=== PATIENT | female | born 1955 | race Caucasian/White ===

== ENCOUNTER 2020-11-01 20:35 | Emergency (ER) | payer MEDICARE, OTHER ==
[2020-11-01 20:43] VITALS: TEMP 98.3
[2020-11-01] MEDS ORDERED: MORPHINE SULFATE 2 MG/ML SYRINGE IM STA (20:56)
--- NOTE | 2020-11-01 21:06 | ED ---
General Adult HPI - General Chief complaint: Fall Stated complaint: Fall/Hand and Ankle Pain Time Seen by Provider: 11/01/20 20:46 Source: patient, family, RN notes reviewed Mode of arrival: wheelchair Limitations: no limitations - History of Present Illness Initial comments: 65-year-old female without any significant past medical history presents to the emergency department for a chief complaint of fall. Patient reports she was reaching to pull down a blind when she fell down 12 stairs. Patient did hit her nose and forehead. She denies neck pain. Patient is complaining of right ankle pain right wrist pain and left fifth digit pain. She thinks her finger is broken. She denies any loss of consciousness. Denies any lacerations. Denies headache at this time.Patient has no other complaints at this time including shortness of breath, chest pain, abdominal pain, nausea or vomiting, headache, or visual changes. - Related Data Home Medications Medication Instructions Recorded Confirmed Fexofenadine HCl [Kristine Allergy] 180 mg PO DAILY 11/01/20 11/01/20 Ibuprofen [Advil] 400 mg PO Q4-6H PRN 11/01/20 11/01/20 Previous Rx's Medication Instructions Recorded HYDROcodone/APAP 5-325MG [Rossford 1 tab PO Q6HR PRN #10 tab 11/01/20 5-325] Allergies Allergy/AdvReac Type Severity Reaction Status Date / Time levofloxacin [From Levaquin] Allergy dizziness Verified 11/01/20 21:32 Review of Systems ROS Statement: Those systems with pertinent positive or pertinent negative responses have been documented in the HPI. ROS Other: All systems not noted in ROS Statement are negative. 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 She does have edema noted of the lateral malleolus of the right ankle. DP pulses 2+. She is able to plantar and dorsiflex the right ankle all of this does elicit pain. No tenderness in the right foot. No tenderness in the knee or hip. Right upper extremity: Patient has pain with full flexion and extension of the right wrist. Radial pulses 2+. No contusions or edema. No snuffbox tenderness. Sensation intact in the right hand. No tenderness in the right hand. No tenderness in the proximal right arm Left upper extremity: Atraumatic aside from deviation of the left 2nd digit Limitations: no limitations General appearance: alert, in no apparent distress Head exam: Present: normocephalic. Absent: atraumatic (Abrasion noted to the forehead and nasal bridge) Eye exam: Present: normal appearance, PERRL, EOMI. Absent: scleral icterus, conjunctival injection, periorbital swelling ENT exam: Present: normal exam, normal oropharynx, mucous membranes moist, TM's normal bilaterally, normal external ear exam Neck exam: Present: normal inspection, full ROM. Absent: tenderness, meningismus, lymphadenopathy Respiratory exam: Present: normal lung sounds bilaterally. Absent: respiratory distress, wheezes, rales, rhonchi, stridor Cardiovascular Exam: Present: regular rate, normal rhythm, normal heart sounds. Absent: systolic murmur, diastolic murmur, rubs, gallop, clicks GI/Abdominal exam: Present: soft, normal bowel sounds. Absent: distended, tenderness, guarding, rebound, rigid, other (No contusions or evidence of external trauma) Back exam: Absent: CVA tenderness (R), CVA tenderness (L), vertebral tenderness (No thoracic or lumbar spine tenderness. No contusions or evidence of external trauma) Neurological exam: Present: alert, oriented X3 Course Vital Signs 11/01/20 20:37 Temperature 98.3 F Pulse Rate 83 Respiratory 20 Rate Blood Pressure 150/94 O2 Sat by Pulse 100 Oximetry Procedures - Orthopedic Joint Reduction Joint #1 Consent Obtained: verbal consent Side: left Joint Reduction Location: finger Technique Used: traction/counter-traction Post-Reduction Neuro Exam: intact Post-Reduction Vascular Exam: intact Post Reduction X-Ray Obtained: Yes Post Reduction X-Ray Results: other (PACS down, clinically reduced) Patient Tolerated Procedure: well, no complications - Orthopedic Splinting/Casting Injury #1 Side: right Lower Extremity Injury Location: short leg Lower Extremity Immobilizer: posterior splint, stirrup splint Additional Comments: Neurovascular status intact Medical Decision Making - Medical Decision Making Patient fell from 12 steps. She did injure her right ankle, right wrist and left second digit. No injuries to the torso. CT brain shows normal for her age. No evidence for a cranial hemorrhage. CT cervical spine shows no fracture . X-ray of the right ankle shows a bimalleolar-type fracture. X-ray of the right wrist is negative. X-ray of the left hand shows a posterior dislocation of the index finger. Right ankle is splinted. Neurovascular status intact. Left finger was reduced using traction countertraction without difficulty. Neurovascular status intact. Repeat x-ray was obtained. At this time patient does have orthopedic physician that she can follow-up with. She will return here for any worsening symptoms. Disposition Clinical Impression: Fall, Finger dislocation, Bimalleolar ankle fracture Disposition: HOME SELF-CARE Condition: Good Instructions (If sedation given, give patient instructions): Ankle Fracture (ED), Head Injury (ED) Additional Instructions: Please take Rossford for pain. These may make you drowsy so be careful while taking this. Please remain nonweightbearing on the right ankle by using crutches. Keep splint dry. Follow-up with orthopedics tomorrow by calling for an appointment. Return to the emergency room for any worsening symptoms. Prescriptions: HYDROcodone/APAP 5-325MG [Rossford 5-325] 1 tab PO Q6HR PRN #10 tab PRN Reason: Pain Is patient prescribed a controlled substance at d/c from ED?: Yes When asked, does pt state using other controlled substances?: No If prescribed controlled substance>3 days was MAPS reviewed?: Prescribed <3 Days If opioid is for acute pain is fill amount 7 days or less?: Yes If Rx opioid, was Start Talking consent form obtained?: Yes Referrals: Jewel Bird DO [Doctor of Osteopathic Medicine] - 1-2 days Time of Disposition: 22:13
--- NOTE | 2020-11-01 21:28 | CT ---
EXAMINATION TYPE: CT brain dineshine wo con DATE OF EXAM: 11/01/2020 COMPARISON: None HISTORY: Fall, abrasions to nose and left orbit. CT DLP: 1177.8 mGycm Automated exposure control for dose reduction was used. The ventricles and sulci appear normal. There is no mass effect nor midline shift. There is no sign o f intracranial hemorrhage. The calvarium is intact. There is no evidence of cerebral edema. Cervical vertebra have normal alignment. There is degenerative disc space narrowing at C5-6 and C6-7 with spurring. Posterior elements are intact. There is mild hypertrophic facet arthropathy. There is no evidence of cervical spine fracture. The skull base is intact. There is normal aeration of the mas toid sinuses. IMPRESSION: CT scan of the brain is normal for age. Spondylotic changes in the lower cervical spine. No fracture.
--- NOTE | 2020-11-01 21:35 | CT ---
EXAMINATION TYPE: CT facial bones wo con DATE OF EXAM: 11/01/2020 COMPARISON: None HISTORY: Fall, abrasions to nose and left orbit. CT DLP: 1177.8 mGycm Automated exposure control for dose reduction was used. Images obtained from the bottom of the mandible to the top of the frontal sinuses without contrast. The mandibular ring is intact. Temporomandibular joints are intact. Zygomatic arches appear normal. N deion bone is intact. There is normal aeration of the paranasal sinuses. There is no evidence of orbit al mass. Retro-orbital soft tissues appear normal. IMPRESSION: Negative CT scan of the facial bones. No fracture seen.
--- NOTE | 2020-11-01 21:37 | XR ---
EXAMINATION TYPE: XR ankle complete RT DATE OF EXAM: 11/01/2020 COMPARISON: NONE HISTORY: Pain TECHNIQUE: 3 views FINDINGS: There is transverse fracture of the medial malleolus. There is oblique fracture distal shaf t of the fibula. Ankle mortise is not widened. There is no dislocation. There is soft tissue swelling around the ankle. IMPRESSION: Bimalleolar type fracture of the ankle. No dislocation. Soft tissue swelling.
--- NOTE | 2020-11-01 21:38 | XR ---
EXAMINATION TYPE: XR wrist complete RT DATE OF EXAM: 11/01/2020 COMPARISON: NONE HISTORY: Wrist pain TECHNIQUE: 3 views FINDINGS: Carpal bones are intact. I see no fracture nor dislocation. Joint spaces are fairly normal. Scaphoid appears intact. IMPRESSION: Negative right wrist exam.
--- NOTE | 2020-11-01 21:40 | XR ---
EXAMINATION TYPE: XR hand complete LT DATE OF EXAM: 11/01/2020 COMPARISON: NONE HISTORY: Pain 3 views of the left hand show posterior dislocation of the PIP joint of the left index finger. I see no fracture line. Joint spaces are normal. There is minor spurring at the first carpometacarpal joint . IMPRESSION: Posterior dislocation of the index finger as above.
[2020-11-01 22:44] VITALS: BP 150/95; PULSE 80; RESP 18
--- NOTE | 2020-11-01 23:37 | XR ---
EXAM: XR Left Fingers, 2 or More Views CLINICAL HISTORY: ITS.REASON XR Reason: post redux TECHNIQUE: Frontal, lateral and oblique views of the fingers of the left hand. COMPARISON: No relevant prior studies available. FINDINGS: Bones/joints: There is a 1-2 mm chip or avulsion fracture off of the palmar aspect of the proximal end of the middle phalanx, second digit. This is seen well only in the lateral view. No dislocation. Soft tissues: Unremarkable. No radiopaque foreign body. IMPRESSION: There is a 1-2 mm chip or avulsion fracture off of the palmar aspect of the proximal end of the middle phalanx, second digit. This is seen well only in the lateral view.
== END 2020-11-01 23:05 | disposition home or self-care (01) ==
LOC: EC 20:35
DX: S82.52XA Displaced fracture of medial malleolus of left tibia, initial encounter for closed fracture (principal); S82.54XA Nondisplaced fracture of medial malleolus of right tibia, initial encounter for closed fracture; S82.434A Nondisplaced oblique fracture of shaft of right fibula, initial encounter for closed fracture; S63.281A Dislocation of proximal interphalangeal joint of left index finger, initial encounter; S62.643A Nondisplaced fracture of proximal phalanx of left middle finger, initial encounter for closed fracture; S00.31XA Abrasion of nose, initial encounter; Z88.1 Allergy status to other antibiotic agents; W10.9XXA Fall (on) (from) unspecified stairs and steps, initial encounter; Y93.89 Activity, other specified; Y92.009 Unspecified place in unspecified non-institutional (private) residence as the place of occurrence of the external cause
CPT/HCPCS: 73110; 73130; 73140; 73610; 72125; 70486; 70450; 96372; 26770; 29515; 99284; J2270

== ENCOUNTER → 2020-11-14 | Day surgery (SDC) | payer MEDICARE, OTHER ==
[2020-11-09 10:05] VITALS: BMI 33.6
[~2020-11-14] MED LIST: DEXAMETHASONE SOD PHOSPHATE 10 MG/ML 1 ML VIAL ONE; DEXAMETHASONE SOD PHOSPHATE 4 MG/ML 1 ML VIAL IV ONE; LACTATED RINGERS 1,000 ML IV ONE; LACTATED RINGERS 1,000 ML IV SCH; LIDOCAINE 1% (10MG/ML) FOR IV START INTRADERMA ONE; LIDOCAINE 1% INJ 10MG/ML (20 ML MDV) ONE; MIDAZOLAM 2 MG/2 ML VIAL IV ONE; MIDAZOLAM 2 MG/2 ML VIAL ONE; ONDANSETRON 4 MG/2 ML VIAL IVP ONE; PROPOFOL 10 MG/ML 20 ML VIAL IV ONE; ROPIVACAINE 5 MG/ML 30 ML VIAL ONE; SUCCINYLCHOLINE CHLORIDE 100 MG/5 ML SYR IV ONE; ceFAZolin 3,000 MG in SODIUM CHLORIDE 0.9% IRRIGATIO 3,000 ML IRRIGATION ONE; ePHEDrine SULFATE/0.9% NACL/PF 50 MG/5 ML SYRINGE IV ONE; fentaNYL (PF) 50 MCG/ML 2 ML AMP ONE
--- NOTE | 2020-11-14 14:47 | P.OP ---
Date of Procedure: 11/14/20 Preoperative Diagnosis: Bimalleolar fracture right ankle Postoperative Diagnosis: Bimalleolar fracture right ankle Procedure(s) Performed: Open reduction and internal fixation of the right distal fibula and medial malleolus Implants: Regalado and nephew small fragment set Anesthesia: GETA Surgeon: Jewel Bird Tool Keeper #1: Yaritza Kellogg Estimated Blood Loss (ml): 20 Pathology: none sent Condition: stable Disposition: PACU Indications for Procedure: This is a 65-year-old female that sustained a fall and subsequently fractured her right ankle. After discussing the surgical nonsurgical treatment options with her at length I recommended open reduction and internal fixation of right distal fibula and medial malleolus. Informed consent was obtained. Operative Findings: The operative findings are consistent with a bimalleolar fracture of the right ankle Description of Procedure: The patient was seen and evaluated in the preoperative area. The consent was reviewed and the operative site was marked with a skin marker. Patient was then brought to the operating room and given 2 g of Ancef by the anesthesia department. A general anesthetic was then administered by the anesthesia department. Tourniquet was placed on the upper thigh and the lower extremity was then prepped and draped in the usual sterile fashion. A universal timeout was then performed which confirmed the patient's name, surgical site, ALLERGIES, and consent. The lower extremity was then exsanguinated, and the tourniquet inflated to 250 mmHg. A standard lateral incision was then performed over the distal fibula with the skin and subcutaneous tissue sharply incised with the incision centered over the fracture site. Tissues were carefully dissected down to the fracture site. The fracture hematoma was evacuated and the fracture was then reduced with bone reducing clamps. Fluoroscopic x-rays confirmed reduction of the fracture and shinto of the ankle mortise. Next, an anterior to posterior lag screw was then placed by over drilling the proximal hole. After the anterior to posterior lag screw was placed, the bone clamp was able to be removed and the fracture was held stable. Next, a one third semitubular plate was pre-bent for the patient's anatomy, and placed on the lateral aspect of the distal fibula. Screws were then were placed both proximally and distally in order to fixate the plate to the distal fibula. Next, attention was directed to the medial malleolus. A curvilinear incision was made over the medial malleolar fracture with care being taken to avoid damaging the neurovascular structures. Fracture was then visualized and periosteum was removed from the fracture site. 2 K wires then placed through the medial malleolus retrograde. These were measured drilled and cannulated screws were placed over the guidewires. After all the screws then placed, final fluoroscopic x-rays confirmed reduction of the fracture, shinto of the ankle mortise, and placement of the plate and screws. The tourniquet was then released and hemostasis was obtained. The incision site was then irrigated with antibiotic solution. Wound was then closed with 2-0 Vicryl for the subcutaneous tissue and erik for the skin. Sterile dressings were applied, and a well-padded and molded posterior splint was placed. Patient was then transported to the recovery room in stable condition. The family service assistant NEHEMIAS Albarado was required due to the complexity of the surgery and the need for a skilled legal support assistant.
--- NOTE | 2020-11-14 15:05 | XR ---
Fluoroscopy INDICATION: Pain FINDINGS: Images obtained: 2. IMPRESSIONS: 1. Documentation of fluoroscopy.
[2020-11-14 15:23] VITALS: TEMP 97.5
[2020-11-14] MEDS: HYDROmorphone 0.5 MG/0.5 ML SYRINGE IVP PRN ×3 (15:30→15:37)
[2020-11-14 15:40] VITALS: RESP 16
[2020-11-14 17:43] VITALS: BP 128/80; PULSE 77
--- NOTE | 2020-11-15 10:49 | P.ANPRN ---
Procedure Note - Anesthesia - Nerve Block Performed Right Adductor Canal Single Time Out Performed: Yes Date of Procedure: 11/14/20 Procedure Start Time: 12:09 Procedure Stop Time: 12:12 Location of Patient: PreOp Indication: Acute Post-Operative Pain, Requested by Surgeon Sedation Type: Sedate with meaningful contact maintained Preparation: Sterile Prep Position: Supine Needle Types: Pajunk Needle Gauge: 21 Ultrasound used to visualize needle placement: Yes Ultrasound used to observe medication spread: Yes Blood Aspirated: No Pain Paresthesia on Injection Noted: No Resistance on Injection: Normal Image Stored and Saved: Yes Events: Uneventful and Well Tolerated (ropi .5% 15cc plus dexamethasone 4mg)
--- NOTE | 2020-11-15 10:50 | P.ANPRN ---
Procedure Note - Anesthesia - Nerve Block Performed Right Popliteal Single Time Out Performed: Yes Date of Procedure: 11/14/20 Procedure Start Time: 12:13 Procedure Stop Time: 12:16 Location of Patient: PreOp Indication: Acute Post-Operative Pain, Requested by Surgeon Sedation Type: Sedate with meaningful contact maintained Preparation: Sterile Prep Position: Left Lateral Needle Types: Pajunk Needle Gauge: 21 Ultrasound used to visualize needle placement: Yes Ultrasound used to observe medication spread: Yes Blood Aspirated: No Pain Paresthesia on Injection Noted: No Resistance on Injection: Normal Image Stored and Saved: Yes Events: Uneventful and Well Tolerated (ropi .5% 15cc plus dexamethasone 4mg)
== END | disposition home health service (06) ==
LOC: OR 11:18
PROVIDERS: ATTEND Orthopaedic Surgery
DX: S82.841A Displaced bimalleolar fracture of right lower leg, initial encounter for closed fracture (principal); M25.511 Pain in right shoulder; S63.281A Dislocation of proximal interphalangeal joint of left index finger, initial encounter; H91.90 Unspecified hearing loss, unspecified ear; R01.1 Cardiac murmur, unspecified; F17.200 Nicotine dependence, unspecified, uncomplicated; Z88.1 Allergy status to other antibiotic agents; Z79.1 Long term (current) use of non-steroidal anti-inflammatories (NSAID); Z79.891 Long term (current) use of opiate analgesic; Z79.3 Long term (current) use of hormonal contraceptives; Z79.899 Other long term (current) drug therapy; Z98.890 Other specified postprocedural states; Z83.3 Family history of diabetes mellitus; W10.9XXA Fall (on) (from) unspecified stairs and steps, initial encounter
CPT/HCPCS: 64447; 64445; 76942; 73600; 27814; C1713; J2250; J1100; J0690 ×2; J2405; J1170

== ENCOUNTER → 2021-02-09 | Outpatient (CLI) | payer OTHER, MEDICARE ==
[2021-02-09 08:16] LABS: HCT 37.2 % (34.0-46.0); HGB 12.6 gm/dL (11.4-16.0); MCH 31.2 pg (25.0-35.0); MCHC 33.8 g/dL (31.0-37.0); MCV 92.3 fL (80.0-100.0); Mean Platelet Volume 7.1; Platelet Count 278 k/uL (150-450); RBC 4.03 m/uL (3.80-5.40); RDW 13.9 % (11.5-15.5); WBC 4.4 k/uL (3.8-10.6)
[2021-02-09 08:36] LABS: INR 0.9 (<1.2); Partial Thromboplastin Time 25.1 sec (22.0-30.0); Prothrombin Time 10.1 sec (9.0-12.0)
[2021-02-09 08:39] LABS: ALT 24 U/L (4-34); AST 28 U/L (14-36); African American GFR (CKD) >90 (>60 ml/min/1.73 sqM); Albumin 4.1 g/dL (3.5-5.0); Alkaline Phosphatase 78 U/L (38-126); Anion Gap 6 mmol/L; Blood Urea Nitrogen 21 mg/dL (7-17); Calcium 9.7 mg/dL (8.4-10.2); Carbon Dioxide 24 mmol/L (22-30); Chloride 108 mmol/L (98-107); Glucose 100 mg/dL (74-99); Non-African American GFR(CKD) 88 (>60 ml/min/1.73 sqM); Sodium 138 mmol/L (137-145); Total Bilirubin 0.6 mg/dL (0.2-1.3); Total Protein 6.9 g/dL (6.3-8.2)
[2021-02-09 08:49] LABS: Appearance,Urine Clear (Clear); Bacteria,Urine Rare /hpf; Bilirubin,Urine Negative (Negative); Blood,Urine Negative (Negative); Color,Urine Light Yellow; Glucose,Urine (UA) Negative (Negative); Ketones,Urine Negative (Negative); Leukocyte Esterase,Urine Large (Negative); Mucus,Urine Rare /hpf; Nitrite,Urine Negative (Negative); PH, Urine 5.5 (5.0-8.0); Protein,Urine Negative (Negative); RBC,Urine 1 /hpf (0-5); Squamous Epithelial Cell,Urine <1 /hpf (0-4); Urobilinogen,Urine <2.0 mg/dL (<2.0); WBC,Urine 11 /hpf (0-5)
== END | disposition home or self-care (01) ==
LOC: LABPAT 07:13
PROVIDERS: ATTEND Orthopaedic Surgery
DX: Z01.818 Encounter for other preprocedural examination (principal); Z79.01 Long term (current) use of anticoagulants; Z01.812 Encounter for preprocedural laboratory examination
CPT/HCPCS: 36415; 80053; 81001; 85027; 85610; 85730; 87070; 93005

== ENCOUNTER 2021-02-20 14:01 | Day surgery (SDC) | payer MEDICARE, OTHER ==
[2021-02-13 10:42] VITALS: BMI 31.5
[~2021-02-20 14:01] MED LIST changes: +ACETAMINOPHEN TAB 500 MG TAB PO PRN; -DEXAMETHASONE SOD PHOSPHATE 10 MG/ML 1 ML VIAL ONE; -DEXAMETHASONE SOD PHOSPHATE 4 MG/ML 1 ML VIAL IV ONE; +GABAPENTIN 300 MG CAP PO PRN; +HYDROmorphone 0.5 MG/0.5 ML SYRINGE IVP PRN; -LACTATED RINGERS 1,000 ML IV ONE; -LACTATED RINGERS 1,000 ML IV SCH; -LIDOCAINE 1% (10MG/ML) FOR IV START INTRADERMA ONE; +LIDOCAINE 1% (10MG/ML) FOR IV START INTRADERMA PRN; -LIDOCAINE 1% INJ 10MG/ML (20 ML MDV) ONE; +MELOXICAM 7.5 MG TAB PO PRN; -MIDAZOLAM 2 MG/2 ML VIAL IV ONE; +MIDAZOLAM 2 MG/2 ML VIAL IV PRN; -MIDAZOLAM 2 MG/2 ML VIAL ONE; -ONDANSETRON 4 MG/2 ML VIAL IVP ONE; -PROPOFOL 10 MG/ML 20 ML VIAL IV ONE; +ROPIVACAINE 246.25 MG, EPINEPHrine 0.5 MG, KETOROLAC 30 MG, cloNIDine HCL/PF 80 MCG, WA... MISCELLANE PRN; -ROPIVACAINE 5 MG/ML 30 ML VIAL ONE; -SUCCINYLCHOLINE CHLORIDE 100 MG/5 ML SYR IV ONE; +TRANEXAMIC ACID 1,000 MG in SODIUM CHLORIDE 0.9% 100 ML IVPB PRN; +VANCOMYCIN 1,250 MG in SODIUM CHLORIDE 0.9% 250 ML IVPB PRN; -ceFAZolin 3,000 MG in SODIUM CHLORIDE 0.9% IRRIGATIO 3,000 ML IRRIGATION ONE; -ePHEDrine SULFATE/0.9% NACL/PF 50 MG/5 ML SYRINGE IV ONE; -fentaNYL (PF) 50 MCG/ML 2 ML AMP ONE
[2021-02-20] MEDS ORDERED: hydrOXYzine pamoate 25 MG CAP PO PRN (14:26)
[2021-02-20] MEDS ORDERED: NA PHOS,M-B/NA PHOS,DI-BA 133 ML ENEMA RECTAL PRN (14:26)
[2021-02-20] MEDS ORDERED: bisacodyL 10 MG SUPP RECTAL PRN (14:26)
[2021-02-20] MEDS ORDERED: HYDROmorphone 0.5 MG/0.5 ML SYRINGE IVP PRN ×2 (14:26)
[2021-02-20] MEDS ORDERED: MAGNESIUM HYDROXIDE 2,400 MG/10 ML CUP PO PRN (14:26)
[2021-02-20] MEDS ORDERED: HYDROmorphone 0.2 MG/1 ML SYRINGE IVP PRN (14:26)
[2021-02-20] MEDS ORDERED: NALOXONE 0.4 MG/ML 1 ML VIAL IV PRN (14:26)
[2021-02-20] MEDS ORDERED: ONDANSETRON 4 MG/2 ML VIAL IVP PRN (14:26)
[2021-02-20] MEDS ORDERED: HYDROcodone/APAP 7.5-325MG 1 EACH TAB PO PRN ×2 (14:28)
[2021-02-20] MEDS: LACTATED RINGERS 1,000 ML IV SCH ×2 (14:38→21:59)
[2021-02-20] MEDS ORDERED: DEXAMETHASONE SOD PHOSPHATE 4 MG/ML 1 ML VIAL IVP ONE (14:39)
[2021-02-20] MEDS ORDERED: MIDAZOLAM 2 MG/2 ML VIAL IVP ONE (14:57)
[2021-02-20] MEDS ORDERED: fentaNYL (PF) 50 MCG/ML 2 ML AMP IVP ONE (14:58)
[2021-02-20] MEDS ORDERED: fentaNYL (PF) 50 MCG/ML 2 ML AMP ONE (16:19)
[2021-02-20] MEDS ORDERED: SODIUM CHLORIDE 0.9% (PF) 10 ML VIAL ONE (16:19)
[2021-02-20] MEDS ORDERED: SODIUM CHLORIDE 0.9% 100 ML BAG ONE (16:19)
[2021-02-20] MEDS ORDERED: MIDAZOLAM 2 MG/2 ML VIAL ONE (16:19)
[2021-02-20] MEDS ORDERED: ROPIVACAINE 5 MG/ML 30 ML VIAL ONE (16:19)
[2021-02-20] MEDS ORDERED: TRANEXAMIC ACID 1,000 MG/10 ML VIAL ONE (16:19)
[2021-02-20] MEDS ORDERED: diphenhydrAMINE 50 MG/ML 1 ML VIAL ONE (16:19)
[2021-02-20] MEDS ORDERED: PROPOFOL 10 MG/ML 20 ML VIAL IV ONE (16:19)
[2021-02-20] MEDS ORDERED: LACTATED RINGERS 1,000 ML IV ONE (17:15)
--- NOTE | 2021-02-20 17:43 | P.OP ---
Date of Procedure: 02/20/21 Preoperative Diagnosis: Severe osteoarthritis right knee with a valgus deformity Postoperative Diagnosis: Severe osteoarthritis right knee with a valgus deformity Procedure(s) Performed: Right total knee arthroplasty Implants: Regalado & Nephew Journey II CR Oxinium Bi-cruciate stabilized femoral component size 4, right Regalado & Nephew Journey nonporous tibial baseplate size 2, right Regalado & Nephew Journey II, constrained articular insert, size 10 mm, Size 1-2, right Regalado & Nephew Journey Anna II resurfacing patellar component, oval, 29 mm All components were cemented using Palacos R bone cement The articulation is Oxinium on polyethylene Anesthesia: spinal Surgeon: Jewel Bird Gamma Facilities Operator #1: Yaritza Kellogg Estimated Blood Loss (ml): 50 Pathology: other (Bone and cartilage) Condition: stable Disposition: PACU Indications for Procedure: After failure of conservative treatment we discussed the surgical and nonsurgical treatment options at length. Patient wishes to proceed with a total knee arthroplasty. Complications specific to this procedure were discussed at length, including but not limited to infection, bleeding, stiffness, and nerve injury. Covid-19 was also discussed at length with the patient, and they are aware of the current policies and procedures. The patient was given the option of delaying surgery, but they elect to proceed knowing these risks. Patient is aware of all these complications and informed consent was obtained Operative Findings: The operative findings are consistent with severe osteoarthritis of the right knee with a severe valgus deformity Description of Procedure: Patient was seen in the preoperative area and the consent was reviewed and the operative site was marked with a skin marker. The patient verified the procedure and the operative site. An adductor canal pain catheter was placed by anesthesia in the preoperative area. The patient was then brought to the operating room and given preoperative antibiotics intravenously. A gram of transexamic acid was given intravenously. A spinal anesthetic was administered by the anesthesia department. A tourniquet was placed on the upper thigh and the lower extremity was prepped with chlorhexidine and draped in usual sterile fashion. A universal timeout was then performed which confirmed the patient's name, surgical site, ALLERGIES, and consent. The lower extremity was then exsanguinated and tourniquet was inflated to 250 mmHg. A standard anterior midline approach to the knee was performed. The skin and subcutaneous tissue were sharply dissected down to the patellar tendon. A medial parapatellar arthrotomy was then performed. The knee was then extended, the patellar was everted, and the knee was again flexed. The infra-patellar fat pad was removed in order to enhance exposure. The anterior horns of both menisci were excised, and a release was performed to the posterior medial aspect of the knee. On gross visual inspection, there was complete loss of articular cartilage in the medial and patellofemoral joint spaces. There was also significant cartilage damage in the lateral compartment. There were multiple pe riarticular osteophytes globally about the knee which were then removed with a Ronguer. The femoral canal was then opened with the 9.5 mm intramedullary drill. The 8 mm intramedullary hung was then inserted into the femoral canal with the distal femoral cutting guide set for 5 of valgus. The distal femoral cutting block was then pinned in place. The intramedullary hung was then removed, and the distal femur was then cut. The cutting block was then removed and the cut was checked for symmetry. The resected bone was then measured to confirm the appropriate distal femoral resection. Next, the sizing guide was then placed and set for 3 external rotation based off of the epicondylar axis and Whitesides line. Pins were then placed and the drill holes, and the femur was sized with the sizing stylus. The pins were then removed, and the sizing guide was then removed. The spikes of the femoral block was then placed into the predrilled holes, and malleted into place. Two 45 mm pins were then placed into the fixation holes on the cutting block. An jaydon wing was then used to ensure there would be no notching with the anterior cut. The anterior condyles were cut without notching. The anterior chord cut was then performed, followed by the posterior cut, posterior chamfer cut, and the anterior chamfer cut. The collateral ligaments were protected during the entire process. The cutting block was then removed. Any remaining bone and osteophytes were removed from the femur with a Rominger. The femoral canal was plugged with autologous bone. Attention was then directed to the tibia. The remaining ACL was removed with a Ronguer, and the tibia was then gently subluxed forward with a large bent knee retractor. Any remaining menisci were excised. The posterior lateral corner was cauterized in order to coagulate the lateral geniculate artery. The extra medullary tibial cutting guide was then placed, set for the appropriate rotation, slope, and depth of resection. The proximal tibia cutting guide was then pinned in place. Proximal tibia was then cut and sized. The femoral trial was placed. The box cutting guide was placed and then using the appropriate reamer, the bone was reamed for the box. Then the box osteotome was used to finish the reaming. The constrained notch trial was then placed. The tibial trial was placed with the appropriate-sized insert. The knee was able to fully extend and flex to 130 and was stable throughout all range of motion. The knee was then extended and the patella was everted. Patella was then measured, and then using an osteotomy guide, the patella was cut at the appropriate level. The patella was then measured and drilled and the patella trial was then placed. The knee was then taken through range of motion with the patella trial and the patella tracked normally using the no thumbs technique.. The knee was then extended patella trial was then removed and the patella was everted. Knee was then flexed and lug holes were drilled through the femoral trial and the femoral trial was then removed. The tibial was then re-exposed, and the tibial broach guide was then pinned in place after it was set for the appropriate rotation to allow for the most coverage without overhang. The tibia was then reamed and broached. The cut surfaces of bone were then irrigated with pulsatile lavage. The posterior structures were injected with the ropivacaine solution. The knee was also irrigated with Irrisept solution. The components were then opened, the cement was mixed, and the components were then cemented in place. The cement was allowed to harden with the knee in full extension. While the cement was hardening, the remaining soft tissues were then injected with a ropivacaine solution, which consisted of 246.25 mg of ropivacaine, 0.5 mg of epinephrine, 30 mg of Toradol, 80 g of clonidine, and 48.45 mL of sterile water, for a total of 100 mL of fluid injected. After the cemented hardened. The tourniquet was released, and hemostasis was obtained. A second gram of transexamic acid was given intravenously. The knee was again irrigated. The knee was again taken through range of motion and found to be stable throughout all range of motion of 0-130, and the patella tracked normally. The fascia was then closed with 0 Vicryl followed by #2 strata fix suture. The subcutaneous tissue was closed wi th 3-0 Vicryl and 3-0 strata fix. Exofin glue was used for the skin and placed with the knee in flexion. After the glue had dried, and Optafoam silver impregnated dressing was applied. The patient was then transferred to recovery room in stable condition. The family practice physician assistant NEHEMIAS Albarado was required due the complexity surgery and the need for a skilled surgical technologist. She assisted in positioning, draping, retraction, and closure of the wound.
[2021-02-20] MEDS ORDERED: ROPIVACAINE 0.2%-NS ON-Q PUMP 2 MG/ML EACH MISCELLANE ONE (18:30)
--- NOTE | 2021-02-20 18:36 | XR ---
EXAMINATION TYPE: XR knee limited RT DATE OF EXAM: 02/20/2021 COMPARISON: NONE HISTORY: Postop knee surgery TECHNIQUE: 2 views FINDINGS: There is right knee prosthesis. Components are in anatomic position. IMPRESSION: No complicating process seen.
--- NOTE | 2021-02-20 20:45 | P.ANPRN ---
Procedure Note - Anesthesia - Nerve Block Performed Right Adductor Canal Infusion Time Out Performed: Yes ([id number]) Date of Procedure: 02/20/21 Procedure Start Time: 14:57 Procedure Stop Time: 15:10 Location of Patient: PreOp Indication: Acute Post-Operative Pain, Analgesia, Dx/Pain Location, Requested by Surgeon Sedation Type: Sedate with meaningful contact maintained Preparation: Sterile Prep, Sterile Dressing Position: Supine Catheter: Indwelling Needle Types: Pajunk Needle Gauge: 18 Ultrasound used to visualize needle placement: Yes Ultrasound used to observe medication spread: Yes Injectate: 0.5% Ropivacaine (see comment for volume) (20 ml) Blood Aspirated: No Pain Paresthesia on Injection Noted: No Resistance on Injection: Normal Image Stored and Saved: Yes Events: Uneventful and Well Tolerated Right iPack Single Time Out Performed: Yes Date of Procedure: 02/20/21 Procedure Start Time: 15:15 Procedure Stop Time: 15:20 Location of Patient: PreOp Indication: Acute Post-Operative Pain, Analgesia, Dx/Pain Location, Requested by Surgeon Sedation Type: Sedate with meaningful contact maintained Preparation: Sterile Prep Position: Right Lateral Catheter: None Needle Types: Pajunk Needle Gauge: 20 (4 inch) Ultrasound used to visualize needle placement: Yes Ultrasound used to observe medication spread: Yes Injectate: 0.5% Ropivacaine (see comment for volume) (10 ml of 0.5% Ropivacaine mixed with 10 ml of PF NaCl.) Blood Aspirated: No Pain Paresthesia on Injection Noted: No Resistance on Injection: Normal Image Stored and Saved: Yes Events: Uneventful and Well Tolerated
[2021-02-20] MEDS ORDERED: SENNOSIDES-DOCUSATE SODIUM 1 EACH TAB PO SCH (21:00)
[2021-02-20] MEDS: ASPIRIN 325 MG TAB PO SCH (22:23)
[2021-02-20] MEDS: SODIUM CHLORIDE 0.9% 1,000 ML IV SCH (22:24)
[2021-02-21 05:11] VITALS: BP 112/73; PULSE 68; RESP 18; TEMP 97.9
[2021-02-21] MEDS: SODIUM CHLORIDE 0.9% 1,000 ML IV SCH (06:20)
[2021-02-21 07:08] LABS: Basophils % (A) 0 %; Eosinophils # (A) 0.1 k/uL (0-0.7); Eosinophils % (A) 1 %; HCT 30.6 % (34.0-46.0); HGB 10.4 gm/dL (11.4-16.0); Lymphocytes % (A) 9 %; MCH 31.2 pg (25.0-35.0); MCHC 33.9 g/dL (31.0-37.0); Monocytes # (A) 0.5 k/uL (0-1.0); Monocytes % (A) 4 %; Neutrophils # (A) 9.6 k/uL (1.3-7.7); Neutrophils % (A) 85 %; Platelet Count 240 k/uL (150-450); RBC 3.33 m/uL (3.80-5.40); RDW 14.3 % (11.5-15.5); WBC 11.2 k/uL (3.8-10.6)
[2021-02-21] MEDS: ASPIRIN 325 MG TAB PO SCH (08:26)
[2021-02-21] MEDS ORDERED: MELOXICAM 7.5 MG TAB PO SCH (09:00)
--- NOTE | 2021-02-21 09:27 | P.PN ---
Progress Note - Text Progress Note Date: 02/21/21 Patient was seen and evaluated at bedside. Postop day 1. Patient is comforta kate lying on the bed. Rated pain levels are 3-4 out of 10 in severity. Moving extremities well without any difficulty. Denied any red flag symptoms, pain over the catheter site. Physical exam: Vital signs stable, afebrile Catheter site: Clean, and intact Dressing. no tenderness over the catheter area. Moving lower extremities without difficulty. Assessment: Acute postoperative pain secondary to right side knee arthroplasty. Postop day 1 Plan: patient is getting On-Q pump with bupivacaine 0.2% preservative-free at the rate of 8 mL per hour. Continue @current rate. Call anesthesia as needed
--- NOTE | 2021-02-21 10:15 | P.DS ---
Providers Expected date of discharge: 02/21/21 Attending physician: Jewel Bird Consults: 02/20/21 14:26 Consult Physician Routine Consulting Provider: Andrés Villa Consult Reason/Comments: medical management Do you want consulting provider notified?: Yes Primary care physician: Ray Shaikh - Discharge Diagnosis(es) (1) Primary osteoarthritis of right knee Current Visit: Yes Status: Acute (2) Status post total right knee replacement Current Visit: Yes Status: Acute Hospital Course: This is a pleasant 65-year-old female was seen in our office with complaint of continued right knee pain. She has a known history of severe osteoarthritis of the right knee. She presented to discuss surgical options. After discussion and consideration the patient elects to proceed with total right knee arthroplasty. She is seen preoperatively by her primary care physician and cleared for surgery. The patient is admitted to [facility] on 02/20/2021 for total knee arthroplasty. The procedure is performed without complication or sequelae. She is doing well postoperatively. Vital signs and labs are stable. She will be discharged to home today in good condition. Please see [facility] rec list of home medications. Plan - Discharge Summary Discharge Rx Participant: No New Discharge Prescriptions: New HYDROcodone/APAP 7.5-325MG [[place] 7.5-325] 1 - 2 tab PO Q6H PRN #32 tab PRN Reason: Pain Sennosides [Senokot] 2 tab PO DAILY PRN #60 tablet PRN Reason: Constipation Aspirin 325 mg PO BID #60 tab No Action HYDROcodone/APAP 5-325MG [[place] 5-325] 1 tab PO Q6HR PRN #10 tab PRN Reason: Pain Multivit-Min/Iron/Folic/Lutein [Centrum Silver Women Tablet] 1 each PO DAILY Acetaminophen Tab [Tylenol] 650 mg PO Q6H PRN PRN Reason: Pain Cannabidiol (Cbd) [Epidiolex] 1 dose PO DIRECTED PRN PRN Reason: Pain Naproxen Sodium [Aleve] 220 mg PO BID Sulfamethox-Tmp 800-160Mg [Bactrim DS 800-160 mg] 1 tab PO Q12HR Discharge Medication List HYDROcodone/APAP 5-325MG [[place] 5-325] 1 tab PO Q6HR PRN #10 tab 11/01/20 [Rx] Acetaminophen Tab [Tylenol] 650 mg PO Q6H PRN 11/09/20 [History] Cannabidiol (Cbd) [Epidiolex] 1 dose PO DIRECTED PRN 11/09/20 [History] Multivit-Min/Iron/Folic/Lutein [Centrum Silver Women Tablet] 1 each PO DAILY 11/09/20 [History] Naproxen Sodium [Aleve] 220 mg PO BID 02/13/21 [History] Sulfamethox-Tmp 800-160Mg [Bactrim DS 800-160 mg] 1 tab PO Q12HR 02/13/21 [History] Aspirin 325 mg PO BID #60 tab 02/20/21 [Rx] HYDROcodone/APAP 7.5-325MG [[place] 7.5-325] 1 - 2 tab PO Q6H PRN #32 tab 02/20/21 [Rx] Sennosides [Senokot] 2 tab PO DAILY PRN #60 tablet 02/20/21 [Rx] Follow up Appointment(s)/Referral(s): Jewel Bird DO [Doctor of Osteopathic Medicine] - 2 Weeks Ambulatory/Diagnostic Orders: Continuous Passive Motion (CPM) Machine [DME.AMB1] Time Frame: 3 Weeks, Locati on: None Selected Activity/Diet/Wound Care/Special Instructions: Weightbearing as tolerated with a walker. CPM 5-6h daily as tolerated. Leave dressing intact. May be removed by home care nurse or by patient in 10 days. May shower with dressing on. Recommend use of compression stockings daily until follow up to help prevent swelling and blood clots. May remove at night before sleeping. Please take aspirin 325mg twice daily for 30 days to prevent blood clots. Please follow up with [facility] and call with any questions or concerns, . Discharge Disposition: HOME WITH HOME HEALTH SERVICES
--- NOTE | 2021-02-21 22:23 | P.CONS ---
History of Present Illness - Reason for Consult Consult date: 02/21/21 Medical management Requesting physician: Jewel Bird - Chief Complaint Knee pain - History of Present Illness Consultation: This is a very pleasant 65-year-old patient who follows with Dr. Shaikh. Patient is undergoing right total knee arthroplasty. Pain had been pr ogressively getting worse. Patient had tried conservative measures. They did not work. Pain was worse with activity better with rest. Pain somewhat localized to the right knee. Postprocedure patient has sunning some pain. The work with therapy. No nausea vomiting. Patient has been in other joints 2. at the bedside to Review of systems: GEN.: None EYES: None HEENT: None NECK: None RESPIRATORY: None CARDIOVASCULAR: None GASTROINTESTINAL: Heartburn GENITOURINARY: None MUSCULOSKELETAL: [Multiple joint pains LYMPHATICS: None HEMATOLOGICAL: None PSYCHIATRY: None NEUROLOGICAL: None Past medical history to include: Osteoarthritis, small hemorrhage in the back of the right eye, positive for Coumadin March 2020 Social history: No smoking. Alcohol occasionally. . 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 Physical examination: VITAL SIGNS: 97.9, 68, 18, 112/73, 97% room air GENERAL: BMI 32.4, sitting up, comfortable. EYES: Pupils equal. Conjunctiva normal. HEENT: External appearance of nose and ears normal, oral cavity grossly normal. NECK: JVD not raised; masses not palpable. HEART: First and second heart sounds are normal; no edema. LUNGS: Respiratory rate normal; clear to auscultation. ABDOMEN: Soft, nontender, liver spleen not palpable, no masses palpable. PSYCH: Alert and oriented x3; mood and affect normal. MUSCULAR skeletal: Evidence of OA especially in the hands. Dressing over the right knee NEUROLOGICAL: Cranial nerves grossly intact; no facial asymmetry, power and sensation grossly intact. LYMPHATICS: No lymph nodes palpable in the axilla and neck INVESTIGATIONS, reviewed in the clinical context: WBC 11.2 hemoglobin 10.4 platelets 240 Previous labs from 02/09/2021: Hemoglobin 12.6 potassium 5 creatinine 0.7 to Assessment and plan: -Right total knee arthroplasty for osteoarthritis. Pain control per surgical team. Patient is put on aspirin for DT prophylaxis. PTOT -Primary osteoarthritis bilateral multiple joints Use pain medications as needed -Obesity BMI 32.4 For weight loss measures and follow-up with PCP -Acute postprocedure blood loss anemia expected from surgery Take [id number] iron -Reactive leukocytosis. No clinical evidence of infection. -GERD Patient does stay quite a bit of Tums at home. Patient be started on Pepcid twice a day. Patient also to follow with GI as an outpatient with a view to possible EGD at some point Patient to follow with PCP upon discharge Thank you Dr. Bidr Past Medical History Past Medical History: Eye Disorder, Osteoarthritis (OA) Additional Past Medical History / Comment(s): heart murmur, hx of small hemorrhage in the back of right eye., hx of fall 11/01/20 -fx right ankle; hx of positive covid march 2020. History of Any Multi-Drug Resistant Organisms: None Reported, MRSA Year Discovered:: 02/28, prior to current surgery MDRO Source:: nasal passageways Past Surgical History: Section Additional Past Surgical History / Comment(s): x2, oral surgery Past Anesthesia/Blood Transfusion Reactions: No Reported Reaction Past Psychological History: No Psychological Hx Reported Smoking Status: Never smoker Past Alcohol Use History: Occasional Past Drug Use History: None Reported Additional Drug Use History / Comment(s): cbd oil - Past Family History Sister(s) Family Medical History: Cancer Additional Family Medical History / Comment(s): brain tumor Medications and Allergies Home Medications Medication Instructions Recorded Confirmed Type Acetaminophen Tab [Tylenol] 650 mg PO Q6H PRN 11/09/20 02/13/21 History Multivit-Min/Iron/Folic/Lutein 1 each PO DAILY 11/09/20 02/13/21 History [Centrum Silver Women Tablet] Aspirin 325 mg PO BID #60 tab 02/20/21 Rx HYDROcodone/APAP 7.5-325MG [[place] 1 - 2 tab PO Q6H PRN #32 tab 02/20/21 Rx 7.5-325] Sennosides [Senokot] 2 tab PO DAILY PRN #60 tablet 02/20/21 Rx Famotidine [Pepcid] 20 mg PO BID #60 tablet 02/21/21 Rx Sennosides-Docusate Sodium 2 each PO HS tab 02/21/21 Rx [Senokot-S] Allergies Allergy/AdvReac Type Severity Reaction Status Date / Time levofloxacin [From Levaquin] Allergy dizziness Verified 02/20/21 14:16 Physical Exam Vitals: Vital Signs Temp Pulse Resp BP Pulse Ox 02/21/21 05:10 97.9 F 68 18 112/73 97 02/21/21 01:26 97.8 F 65 16 118/73 95 02/20/21 21:03 97.4 F L 71 14 135/84 98 02/20/21 20:03 97.8 F 80 18 138/84 95 02/20/21 20:00 71 02/20/21 19:11 73 18 141/75 97 02/20/21 18:54 72 16 141/73 97 02/20/21 18:39 74 16 150/76 99 02/20/21 18:24 77 16 142/75 100 02/20/21 18:09 89 18 146/87 100 02/20/21 15:32 61 16 139/80 100 02/20/21 14:37 97.0 F L 71 17 159/75 98 Intake and Output 02/20/21 02/21/21 02/21/21 22:59 06:59 14:59 Intake Total 1800 1130 Output Total 50 Balance 1750 1130 Intake: IV 1800 Intake, IV Titration 630 Amount Sodium Chloride 0.9% 1, 630 000 ml @ 70 mls/hr IV . [id number] [facility] Rx#:[id number] Oral 500 Output: Estimated Blood Loss 50 Other: Voiding Method Incontinent # Voids 3 1 Weight 82.9 kg Results CBC & Chem 7: 02/21/21 06:41 Labs: Abnormal Lab Results - Last 24 Hours (Table) 02/21/21 Range/Units 06:41 WBC 11.2 H (3.8-10.6) k/uL RBC 3.33 L (3.80-5.40) m/uL Hgb 10.4 L (11.4-16.0) gm/dL Hct 30.6 L (34.0-46.0) % Neutrophils # 9.6 H (1.3-7.7) k/uL
== END 2021-02-21 11:35 | disposition home health service (06) ==
LOC: OR 14:01 → 5NMEDONC 18:48 → OR 02-21 11:35
PROVIDERS: ATTEND Orthopaedic Surgery
DX: M17.11 Unilateral primary osteoarthritis, right knee (principal); M21.061 Valgus deformity, not elsewhere classified, right knee; R01.1 Cardiac murmur, unspecified; R63.5 Abnormal weight gain; H91.90 Unspecified hearing loss, unspecified ear; R26.81 Unsteadiness on feet; Z97.3 Presence of spectacles and contact lenses; Z98.891 History of uterine scar from previous surgery; Z98.890 Other specified postprocedural states; Z79.1 Long term (current) use of non-steroidal anti-inflammatories (NSAID); Z79.899 Other long term (current) drug therapy; Z88.1 Allergy status to other antibiotic agents
CPT/HCPCS: 97110; 97161; 64999; 64448; 76942; 85025; 87635; 73560; 27447; C1713 ×2; J2250; J0171; J3370; J1100; J0690; J2405; J3010; J1885; J2795 ×2; J0735; 88300

== ENCOUNTER 2021-04-16 09:34 | Day surgery (SDC) | payer MEDICARE ==
[2021-04-12 15:57] VITALS: BMI 32.5
[~2021-04-16 09:34] MED LIST changes: -ACETAMINOPHEN TAB 500 MG TAB PO PRN; -GABAPENTIN 300 MG CAP PO PRN; -HYDROmorphone 0.5 MG/0.5 ML SYRINGE IVP PRN; +LACTATED RINGERS 1,000 ML IV SCH; -MELOXICAM 7.5 MG TAB PO PRN; -MIDAZOLAM 2 MG/2 ML VIAL IV PRN; -ROPIVACAINE 246.25 MG, EPINEPHrine 0.5 MG, KETOROLAC 30 MG, cloNIDine HCL/PF 80 MCG, WA... MISCELLANE PRN; -TRANEXAMIC ACID 1,000 MG in SODIUM CHLORIDE 0.9% 100 ML IVPB PRN; -VANCOMYCIN 1,250 MG in SODIUM CHLORIDE 0.9% 250 ML IVPB PRN
[2021-04-16 10:01] VITALS: RESP 16; TEMP 98.6
[2021-04-16] MEDS ORDERED: PROPOFOL 10 MG/ML 20 ML VIAL IV ONE (10:55)
[2021-04-16] MEDS ORDERED: LIDOCAINE 1% INJ 10MG/ML (20 ML MDV) ONE (10:55)
--- NOTE | 2021-04-16 11:32 | P.PCN ---
Date of Procedure: 04/16/21 Description of Procedure: Brief history: Patient is a pleasant 65-year-old female presented for outpatient EGD and colonoscopy for evaluation of dyspepsia and screening for malignant neoplasm of the colon. Patient reports epigastric pain and discomfort as well as dyspepsia. Seen in the GI clinic she was started on omeprazole therapy. The patient does have a remote history of colonoscopy. She also reports a remote history of peptic ulcer disease. Procedure performed: Esophagogastroduodenoscopy with biopsy Colonoscopy Estimated blood loss: Minimal. Preoperative diagnosis: Dyspepsia, screening for malignant neoplasm of the colon, patient reports remote history of colonoscopy. Anesthesia: MAC Procedure: After informed consent was obtained from the patient was brought into the endoscopy unit and IV sedation was administered by anesthesia under continuous monitoring. Initially upper endoscopy was done. The Olympus GF 190 video endoscope was inserted into the mouth and esophagus intubated without any difficulty and was gradually advanced into the stomach and duodenum and carefully examined. The bulb and second part of the duodenum appeared normal, with biopsies taken. The scope was then withdrawn into the stomach adequately insufflated with air and upon careful examination the antrum and body, cardia and fundus appeared normal, except for a linear 3 mm antral ulcer without high- risk stigmata for bleeding which was biopsied and some moderate scattered er ythema in the antrum and body suggestive of moderate gastritis with biopsies of antrum and body taken. The scope was then withdrawn into the esophagus. The GE junction was located at 35 cm to the incisors. It appeared regular with no erythema erosions or ulcerations, with biopsies of the lower esophagus taken. Rest of the esophagus appeared normal. Patient tolerated the procedure well. At this time the patient continued to remain sedation. Initial digital rectal examination was normal. Olympus CF 190 video colonoscope was then inserted into the rectum and gradually advanced to the cecum without any difficulty. Careful examination was performed as the scope was gradually being withdrawn. The prep was excellent. The cecum, ascending colon, transverse colon, descending colon, sigmoid colon and rectum appeared normal. Retroflexion was performed in the rectum and no lesions were noted, with mild internal hemorrhoids and. Patient tolerated the procedure well. Impression: 1. Nonbleeding antral ulcer without high-risk stigmata. Moderate gastritis. Biopsies of the duodenum, antral ulcer, antrum body and lower esophagus. 2. Internal hemorrhoids. Otherwise normal-appearing colon from rectum to cecum. Recommendations: Findings of this examination were discussed with the patient as well as her family. Okay to resume diet. Okay to resume medications. Await pathology from biopsies. Recommend strict avoidance of NSAID medications. Continue omeprazole daily. Follow-up in the GI clinic as scheduled. Recommend repeat EGD in 8 weeks to check for ulcer healing. Recommend repeat colonoscopy in 10 years for screening for malignant neoplasm of the colon or sooner if signs or symptoms of further evaluation of a polyp.
[2021-04-16 12:04] VITALS: BP 132/88; PULSE 71
== END 2021-04-16 12:02 | disposition home or self-care (01) ==
LOC: ORWHC2ENDO 09:34
PROVIDERS: ATTEND Internal Medicine
DX: Z12.11 Encounter for screening for malignant neoplasm of colon (principal); K25.9 Gastric ulcer, unspecified as acute or chronic, without hemorrhage or perforation; K64.8 Other hemorrhoids; K29.80 Duodenitis without bleeding; Z88.1 Allergy status to other antibiotic agents
CPT/HCPCS: 88305; 88342; 43239; J2001; J2704; G0121

== ENCOUNTER 2021-10-14 10:08 | Emergency (ER) | payer MEDICARE ==
--- NOTE | 2021-10-14 10:24 | ED ---
General Adult HPI - General Stated complaint: fall,rt arm pain Time Seen by Provider: 10/14/21 10:22 Source: patient, RN notes reviewed Mode of arrival: ambulatory Limitations: no limitations - History of Present Illness Initial comments: This 65-year-old female presents emergency Department chief complaint of right forearm pain. Patient states that she was coming out of a store last night when she tripped over something falling forward. Patient went to right forearm pain Injury no loss conscious. Patient had no prior forearm fractures. Patient does see Dr. Bird currently. Patient denies any paresthesias. - Related Data Home Medications Medication Instructions Recorded Confirmed Cannabidiol (Cbd) [Epidiolex] 1 dose PO DIRECTED 04/12/21 07/13/21 Multivit with Calcium,Iron,Min 1 each PO DAILY 04/12/21 07/13/21 [Women's Multivitamin] Omeprazole 20 mg PO DAILY 04/12/21 07/13/21 Allergies Allergy/AdvReac Type Severity Reaction Status Date / Time levofloxacin [From Levaquin] Allergy dizziness Verified 10/14/21 10:25 Review of Systems ROS Statement: Those systems with pertinent positive or pertinent negative responses have been documented in the HPI. ROS Other: All systems not noted in ROS Statement are negative. Past Medical History Past Medical History: Osteoarthritis (OA) Additional Past Medical History / Comment(s): states "had small ulcer to stomach with last egd",heart murmur, hx of small hemorrhage in the back of right eye., hx of fall 11/01/20 -fx right ankle; hx of positive covid march 2020. History of Any Multi-Drug Resistant Organisms: None Reported Date of last positivie culture/infection: 02/28, prior to current surgery MDRO Source:: nasal passageways Past Surgical History: Section, Joint Replacement, Orthopedic Surgery Additional Past Surgical History / Comment(s): x2, oral s urgery,egd,colonoscopy,ORIF rt ankle,rt total knee replacement Past Anesthesia/Blood Transfusion Reactions: No Reported Reaction Smoking Status: Never smoker - Past Family History Sister(s) Family Medical History: Cancer Additional Family Medical History / Comment(s): brain tumor General Exam General appearance: alert, in no apparent distress Head exam: Present: atraumatic, normocephalic, normal inspection Eye exam: Present: normal appearance, PERRL, EOMI. Absent: scleral icterus, conjunctival injection, periorbital swelling Neck exam: Present: normal inspection, full ROM. Absent: tenderness, meningismus, lymphadenopathy Respiratory exam: Present: normal lung sounds bilaterally. Absent: respiratory distress, wheezes, rales, rhonchi, stridor Cardiovascular Exam: Present: regular rate, normal rhythm, normal heart sounds. Absent: systolic murmur, diastolic murmur, rubs, gallop, clicks Extremities exam: Present: other (Right forearm tenderness, no hand tenderness no tenderness full range of motion.) Neurological exam: Present: alert Skin exam: Present: warm, dry, intact, normal color. Absent: rash Course Vital Signs 10/14/21 10:22 Temperature 98.2 F Pulse Rate 70 Respiratory 18 Rate Blood Pressure 137/83 O2 Sat by Pulse 96 Oximetry - Reevaluation(s) Reevaluation #1: 10/14/21 10:54 Patient did not request any in meds, declined payment offered Procedures - Orthopedic Splinting/Casting Injury #1 Side: right Upper Extremity Injury Location: short arm, wrist Upper Extremity Immobilizer: volar splint, synthetic pre-padded splint Medical Decision Making - Medical Decision Making Patient has a distal ulnar fracture patient was splinted and will follow-up with orthopedics. Patient does currently see orthopedics associate. Disposition Clinical Impression: Right distal ulnar fracture Disposition: HOME SELF-CARE Condition: Stable Instructions (If sedation given, give patient instructions): Arm Fracture in Adults (ED) Additional Instructions: Please return to the Emergency Department if symptoms worsen or any other concerns. Is patient prescribed a controlled substance at d/c from ED?: No Referrals: Ray Shaikh DO [Primary Care Provider] - 1-2 days Jewel Bird DO [Doctor of Osteopathic Medicine] - 1-2 days Time of Disposition: 10:54
[2021-10-14 10:26] VITALS: BP 137/83; PULSE 70; RESP 18; TEMP 98.2
--- NOTE | 2021-10-14 10:48 | XR ---
EXAMINATION TYPE: XR forearm RT DATE OF EXAM: 10/14/2021 CLINICAL HISTORY: pain TECHNIQUE: Frontal and lateral images of the right forearm are obtained. COMPARISON: None. FINDINGS: There is vague linear lucency distal left ulna which could reflect nondisplaced fracture. C orrelate clinically point tenderness. The joint spaces appear within normal limits. The overlying so ft tissue appears unremarkable. IMPRESSION: There is vague linear lucency distal left ulna which could reflect nondisplaced fracture. Correlate c linically point tenderness.
== END 2021-10-14 11:09 | disposition home or self-care (01) ==
LOC: EC 10:08
DX: S52.601A Unspecified fracture of lower end of right ulna, initial encounter for closed fracture (principal); M19.90 Unspecified osteoarthritis, unspecified site; Z79.899 Other long term (current) drug therapy; W01.0XXA Fall on same level from slipping, tripping and stumbling without subsequent striking against object, initial encounter; Y92.512 Supermarket, store or market as the place of occurrence of the external cause
CPT/HCPCS: 29125; 99284

== ENCOUNTER → 2022-03-12 | Outpatient (CLI) | payer MEDICARE ==
--- NOTE | 2022-03-12 11:39 | BD ---
EXAMINATION TYPE: Axial Bone Density DATE OF EXAM: 03/12/2022 COMPARISON: NONE CLINICAL HISTORY: 66 year old Female. ICD-10 CODE: Z78.0 MENOPAUSAL STATE Height: 62 Weight: 182.6 FRAX RISK QUESTIONS: Alcohol (3 or more units per day): no Family History (Parent hip fracture): yes Glucocorticoids (More than 3mos): no (Ex: prednisone, prednisolone, methylprednisolone, dexamethasone, and hydrocortisone). History of Fracture in Adulthood: yes Secondary Osteoporosis: 1. Type 1 Diabetes: no 2. Hyperthyroidism: no 3. Menopause before 45: no 4. Malnutrition: no 5. Chronic liver disease: no Rheumatoid Arthritis: no Current Tobacco Use: no RISK FACTORS HISTORY OF: History of Wrist Fracture: right When: 2020 Surgery to Spine/Hip(right/left)/Wrist (right/left): no Family History of Osteoporosis: yes Active: yes Diet low in dairy products/other sources of calcium: yes Postmenopausal woman: no Lost more than 2 inches in height since high school: yes MEDICATIONS: Additional History: EXAM MEASUREMENTS: Bone mineral densitometry was performed using the Downstream System. Bone mineral density as measured about the Lumbar spine is: ----- L1-L4(G/cm2): 1.266 T Score Values are as follows: ----- L1: 0.9 ----- L2: -0.2 ----- L3: 1.2 ----- L4: 0.7 ----- L1-L4: 0.7 Bone mineral density : baseline Bone mineral density about the R hip (g/cm2): 0.896 Bone mineral density about the L hip (g/cm2): 0.911 T Score values are as follows: -----R Neck: -1.0 -----L Neck: -0.9 -----R Total: 0.0 -----L Total: 0.3 Bone mineral density : baseline FRAX%s: The graph provided illustrates a 21.7% chance for a major osteoporotic fx and a 1.9% chance f or the hips probability for fx in 10 years time. IMPRESSION: Normal (Values between +1 and -1 indicate normal bone mass). Consider repeating this study in 5 year s or sooner if there is some new clinical indication. NOTE: T-SCORE=SD OF THE YOUNG ADULT MEAN.
--- NOTE | 2022-03-13 11:05 | MM ---
Reason for exam: screening (asymptomatic). History: Patient is postmenopausal and had first child at age 29. Family history of breast cancer in maternal aunt. Physical Findings: A clinical breast exam by your physician is recommended on an annual basis and results should be correlated with mammographic findings. MG Screening Mammo w CAD Bilateral CC and MLO view(s) were taken. There are scattered fibroglandular densities. There is no discrete abnormality. No significant changes when compared with prior studies. ASSESSMENT: Negative, BI-RAD 1 RECOMMENDATION: Routine screening mammogram of both breasts in 1 year.
== END | disposition home or self-care (01) ==
LOC: RADMAMWWP 07:24
PROVIDERS: ATTEND Family Medicine
DX: Z12.31 Encounter for screening mammogram for malignant neoplasm of breast (principal); Z78.0 Asymptomatic menopausal state; Z80.3 Family history of malignant neoplasm of breast
CPT/HCPCS: 77067; 77080

== ENCOUNTER → 2023-10-24 | Outpatient (CLI) | payer MEDICARE ==
--- NOTE | 2023-10-27 14:40 | MM ---
Reason for Exam: Screening (asymptomatic). Last mammogram was performed 1 year(s) and 7 month(s) ago. Patient History: Menarche at age 10. First Full-Term at age 29. Late child-bearing (after 30). Postmenopausal. Maternal aunt had breast cancer. Risk Values: Sarahi 5 year model risk: 2.4%. NCI Lifetime model risk: 7.3%. Prior Study Comparison: 03/12/2022 Bilateral Screening Mammogram, [facility]. Tissue Density: There are scattered fibroglandular densities. Findings: Analyzed By CAD. Pattern appears symmetrical and stable. No significant interval change is No suspicious groups of microcalcifications, spiculated or lobular masses, architectural distortion or other secondary signs of malignancy are mammographically apparent. Overall Assessment: Benign, BI-RAD 2 Management: Screening Mammogram of both breasts in 1 year. A negative mammogram report should not preclude additional follow up of suspicious palpable abnormalities. Patient should continue monthly self breast exam. A clinical breast exam by your physician is recommended on an annual basis and results should be correlated with mammographic findings. Electronically signed and approved by: Dexter Lawson D.O. Radiologis
== END | disposition home or self-care (01) ==
LOC: RADMAMWWP 07:33
PROVIDERS: ATTEND Family Medicine
DX: Z12.31 Encounter for screening mammogram for malignant neoplasm of breast (principal); Z78.0 Asymptomatic menopausal state; Z80.3 Family history of malignant neoplasm of breast
CPT/HCPCS: 77063; 77067

== ENCOUNTER 2023-11-25 07:37 | Day surgery (SDC) | payer MEDICARE ==
[2023-11-19 09:54] VITALS: BMI 32.9
[~2023-11-25 07:37] MED LIST changes: -LIDOCAINE 1% (10MG/ML) FOR IV START INTRADERMA PRN
[2023-11-25 08:15] VITALS: TEMP 98.3
[2023-11-25] MEDS ORDERED: PROPOFOL 10 MG/ML 20 ML VIAL IV ONE (08:50)
[2023-11-25] MEDS ORDERED: LIDOCAINE 1% INJ 10MG/ML (20 ML MDV) ONE (08:50)
--- NOTE | 2023-11-25 09:01 | P.PCN ---
Date of Procedure: 11/25/23 Procedure(s) Performed: BRIEF HISTORY: Patient is a 68-year-old, pleasant, female scheduled for an upper endoscopy as a part of evaluation of epigastric pain and intermittent dysphagia to solids. Last EGD was 2 years ago and was diagnosed with peptic ulcer disease. Since that she has been maintained on omeprazole 20 mg daily.. PROCEDURE PERFORMED: Esophagogastroduodenoscopy with biopsy. PREOPERATIVE DIAGNOSIS: Epigastric pain and intermittent dysphagia to solids and prior history of peptic ulcer disease. IV sedation per anesthesia. PROCEDURE: After informed consent was obtained, the patient was brought into the endoscopy unit. IV sedation was administered by Anesthesia under continuous monitoring. Initially the Olympus GIF-140 video endoscope was inserted into the mouth. Esophagus intubated without any difficulty. It was gradually advanced into the stomach and duodenum and carefully examined. The bulb and the second part of the duodenum appeared normal. The scope at this time was withdrawn to the stomach, adequately insufflated with air, and upon careful examination, mucosa of the antrum, and mild gastritis and biopsies were done from this area. The previously noted gastric ulcer has completely healed. Because of the body, cardia and the fundus appeared normal. The scope was then withdrawn into the esophagus. Moderate size hiatal hernia noted. The GE junction was located at 32 cm from the incisors. The esophagus appeared normal. There were no erosions or ulcerations seen and no evidence of esophageal stricture and the patient tolerated the procedure well. IMPRESSION: 1. Mild antral gastritis. 2. Completely healed gastric ulcer 3. Moderate size hiatal hernia. RECOMMENDATIONS: The findings of this examination were discussed with the patient as well as her family. She was advised to follow with the biopsy results. Continue with omeprazole as needed and follow antireflux measures..
[2023-11-25 09:30] VITALS: RESP 16
[2023-11-25 09:53] VITALS: BP 134/83; PULSE 65
== END 2023-11-25 10:14 | disposition home or self-care (01) ==
LOC: ORWHC2ENDO 07:37
PROVIDERS: ATTEND Internal Medicine Gastroenterology
DX: K29.50 Unspecified chronic gastritis without bleeding (principal); K44.9 Diaphragmatic hernia without obstruction or gangrene; K27.9 Peptic ulcer, site unspecified, unspecified as acute or chronic, without hemorrhage or perforation; M19.90 Unspecified osteoarthritis, unspecified site; K21.9 Gastro-esophageal reflux disease without esophagitis; Z96.651 Presence of right artificial knee joint; Z98.890 Other specified postprocedural states; Z79.899 Other long term (current) drug therapy; Z87.11 Personal history of peptic ulcer disease
CPT/HCPCS: 88305; 43239; J2001; J2704

== ENCOUNTER 2023-12-15 05:32 | Day surgery (SDC) | payer MEDICARE, OTHER ==
[~2023-12-15 05:32] MED LIST changes: +ACETAMINOPHEN TAB 500 MG TAB PO PRN; +DEXAMETHASONE SOD PHOSPHATE 4 MG/ML 1 ML VIAL IV ONE; +GABAPENTIN 300 MG CAP PO PRN; -LACTATED RINGERS 1,000 ML IV SCH; +MELOXICAM 7.5 MG TAB PO PRN; +ONDANSETRON 4 MG/2 ML VIAL IVP ONE; +TRANEXAMIC 1,000 MG/100ML-NACL 1,000 MG in SALINE 1 100ML.BAG IVPB PRN
[2023-12-15] MEDS ORDERED: DEXAMETHASONE SOD PHOSPHATE 4 MG/ML 1 ML VIAL IVP ONE (06:17)
[2023-12-15] MEDS ORDERED: ONDANSETRON 4 MG/2 ML VIAL IVP ONE (06:18)
[2023-12-15] MEDS ORDERED: LACTATED RINGERS 1,000 ML IV ONE ×2 (06:18→07:58)
[2023-12-15] MEDS ORDERED: MIDAZOLAM 2 MG/2 ML VIAL IVP ONE ×2 (06:34)
[2023-12-15] MEDS ORDERED: fentaNYL (PF) 50 MCG/ML 2 ML AMP IVP ONE (06:34)
[2023-12-15] MEDS ORDERED: ceFAZolin 1,000 MG in SODIUM CHLORIDE 0.9% 1,000 ML IRRIGATION ONE (06:56)
[2023-12-15] MEDS ORDERED: MIDAZOLAM 2 MG/2 ML VIAL IV PRN (07:00)
--- NOTE | 2023-12-15 07:00 | P.ANPRN ---
Procedure Note - Anesthesia - Nerve Block Performed Left Adductor Canal Infusion Time Out Performed: Yes ([id number]) Date of Procedure: 12/15/23 Procedure Start Time: 06:33 Procedure Stop Time: 06:40 Indication: Acute Post-Operative Pain, Analgesia, Dx/Pain Location, Requested by Surgeon Sedation Type: Sedate with meaningful contact maintained Preparation: Sterile Prep Position: Supine Catheter: Indwelling Needle Types: Pajunk Needle Gauge: 20 Ultrasound used to visualize needle placement: Yes Ultrasound used to observe medication spread: Yes Injectate: 0.5% Ropivacaine (see comment for volume) (20cc) Blood Aspirated: No Pain Paresthesia on Injection Noted: No Resistance on Injection: Normal Image Stored and Saved: Yes Events: Uneventful and Well Tolerated
--- NOTE | 2023-12-15 07:01 | P.ANPRN ---
Procedure Note - Anesthesia - Nerve Block Performed Left iPack Time Out Performed: Yes Date of Procedure: 12/15/23 Procedure Start Time: 06:41 Procedure Stop Time: 06:44 Location of Patient: PreOp Indication: Acute Post-Operative Pain, Analgesia, Requested by Surgeon Sedation Type: Sedate with meaningful contact maintained Preparation: Sterile Prep Position: Supine Catheter: None Needle Types: Pajunk Needle Gauge: 20 Ultrasound used to visualize needle placement: Yes Ultrasound used to observe medication spread: Yes Injectate: 0.5% Ropivacaine (see comment for volume) (20cc) Blood Aspirated: No Pain Paresthesia on Injection Noted: No Resistance on Injection: Normal Image Stored and Saved: Yes Events: Uneventful and Well Tolerated
--- NOTE | 2023-12-15 08:07 | P.OP ---
Date of Procedure: 12/15/23 Preoperative Diagnosis: Severe osteoarthritis left knee Postoperative Diagnosis: Severe osteoarthritis left knee Procedure(s) Performed: Left total knee arthroplasty Implants: Regalado [employer] Nephew Journey II CR Oxinium Bi-cruciate stabilized femoral component size 4, left Regalado [employer]hew Journey nonporous tibial baseplate size 3, left Regalado [employer] Nephew Journey II, constrained articular insert, size 9 mm, Size 3-4, left Regalado [employer] Nephew Journey Anna II resurfacing patellar component, oval, 29 mm All components were cemented using Palacos R bone cement The articulation is Oxinium on polyethylene Anesthesia: IRAM Surgeon: Jewel Bird Sales Account Director #1: Yaritza Kellogg Estimated Blood Loss (ml): 50 Pathology: none sent Condition: stable Disposition: PACU Indications for Procedure: The patient's knee is end-stage, and conservative management has failed. The operation of knee replacement has been discussed at length in the office, as well as potential risks and complications. These are inclusive of, but not limited to: Infection, bleeding, scarring, discomfort, stiffness, blood vessel and nerve damage, need for further surgery, failure to relieve symptoms, persistence, recurrence, or worsening of problems, loosening, dislocation, wear, blood clot, pulmonary embolism, , gait dysfunction, stiffness, and other risks as discussed in the office. Patient elects to proceed and the consent form has been signed. Operative Findings: The operative findings are consistent with severe osteoarthritis of the left knee Description of Procedure: The patient was seen in the preoperative area, the consent was reviewed and the operative site was marked with a skin marker. The patient verified the procedure and the operative site. An adductor canal pain catheter and an iPACK block were placed by anesthesia in the preoperative area. The patient was then brought to the operating room and positioned on the operating room table in the supine position. Preoperative antibiotics and a gram of tranexamic acid were given intravenously. A general anesthetic was administered by the anesthesia department. Care was taken to make sure that all pressure points were adequately padded. A tourniquet was placed on the upper thigh and the lower extremity was prepped with ChloraPrep and draped in usual sterile fashion. A universal time-out was then performed which confirmed the patient's name, surgical site, ALLERGIES, and consent. The lower extremity was then exsanguinated and tourniquet was inflated to 250 mmHg. A standard anterior midline approach to the knee was performed. The skin and subcutaneous tissue were sharply dissected down to the patellar tendon. A medial parapatellar arthrotomy was then performed. The knee was then extended, the patellar was everted, and the knee was flexed. The infra-patellar fat pad was removed in order to enhance exposure. The anterior horns of both menisci were excised, and a release was performed to the posterior medial aspect of the knee. On gross visual inspection, there was complete loss of articular cartilage in the medial and patellofemoral joint spaces. There was also significant cartilage damage in the lateral compartment. There were multiple periarticular osteophytes globally about the knee which were then removed with a Ronguer. The femoral canal was then opened with the 9.5 mm intramedullary drill. The 8 mm intramedullary hung was then inserted into the femoral canal with the distal femoral cutting guide set for 5 of valgus. The distal femoral cutting block was then pinned in place. The intramedullary hung was then removed, and the distal femur was then cut. The cutting block was then removed and the cut was checked for symmetry. The resected bone was then measured to c onfirm the appropriate distal femoral resection. Next, the sizing guide was then placed and set for 3 external rotation based off of the epicondylar axis and [place]'s line. Pins were then placed and the drill holes, and the femur was sized with the sizing stylus. The pins were then removed, and the sizing guide was then removed. The spikes of the appropriate size femoral block was then placed into the predrilled holes, and malleted into place. Two 45 mm pins were then placed into the fixation holes on the cutting block. An jaydon wing was then used to ensure there would be no notching with the anterior cut. The anterior condyles were cut without notching. The anterior chord cut was then performed, followed by the posterior cut, posterior chamfer cut, and the anterior chamfer cut. The collateral ligaments were protected during the entire process. The cutting block was then removed. Any remaining bone and osteophytes were removed from the femur with a Ronguer. Attention was then directed to the tibia. The remaining ACL was removed with a Ronguer, and the tibia was then gently subluxed forward with a large bent knee retractor. Any remaining menisci were excised. The posterior lateral corner was cauterized in order to coagulate the lateral geniculate artery. The extra medullary tibial cutting guide was then placed, set for the appropriate rotation, slope, and depth of resection. The proximal tibia cutting guide was then pinned in place. Proximal tibia was then cut and sized. A curved osteotome was then used to remove any posterior osteophytes from the distal femur. The femoral trial was placed. The box drill guide was then used to remove the intracondylar femoral bone. The box trial was then placed. The tibial trial was placed with the appropriate-sized insert. The knee was able to fully extend and flex to 130 and was stable throughout all range of motion. The knee was then extended and the patella was everted. Patella was then measured, and then using an osteotomy guide, the patella was cut at the appropriate level. The patellar component was sized. The patellar drill guide was placed and the patella was drilled. The patella trial was then placed. The knee was then taken through range of motion with the patella trial and the patella tracked normally using the no thumbs technique. The patella trial was then removed. The knee was then flexed and lug holes were drilled through the femoral trial and the femoral trial was then removed. The tibial was then re-exposed, and the tibial broach guide was then pinned in place after it was set for the appropriate rotation to allow for the most coverage without overhang. The tibia was then reamed and broached. The femoral canal was plugged with autologous bone. The cut surfaces of bone were then irrigated with pulsatile lavage. The knee was also irrigated with Irrisept solution. The components were then opened, the cement was mixed. Cement was placed on the backside of the femoral, tibial, and patellar components. Cement was then applied to the tibial surface and pressurized into the surface using finger pressurization technique. The tibial component was then applied and excess cement was removed after it was impacted securely noted to be flush with the cut surface. In similar fashion, the cement was applied to the cut femoral surface, pressurized and using finger pressurization the component was impacted in place. Excess cement was removed. The polyethylene spacer was then implanted and locked into position. Patellar component was then applied in a similar technique and the patellar clamp was used to hold patella in place while the cement hardened. The knee was held in full extension while the cement hardened. Once the cement had fully hardened, the knee was reinspected. Any other cement extrusion was removed the final range of motion testing showed range of motion from 0-130 with excellent stability, both medial and laterally and appropriate alignment of the leg. Patella tracked normally. After the cemented hardened, the tourniquet was released and hemostasis was obtained. A second gram of transexamic acid was given intravenously. The knee was again irrigated. The knee was again taken through range of motion and found to be stable throughout all range of motion of 0-130, and the patella tracked normally. The fascia was then closed with 0 Vicryl followed by #2 strata fix suture. The subcutaneous tissue was closed with 3-0 Vicryl and 3-0 strata fix. Exofin glue was used for the skin and placed with the knee in flexion. After the glue had dried, and Optafoam silver impregnated dressing was applied. A lightly compressive dressing was applied using web roll and Kushal wrap. Patient was then transferred to the stretcher and taken to recovery room in stable condition. Sponge and needle counts were correct. The bilingual teacher assistant NEHEMIAS Albarado was required due the complexity surgery and the need for a skilled web production assistant. She assisted in positioning, draping, retraction, and closure of the wound.
[2023-12-15] MEDS ORDERED: HYDROmorphone 0.5 MG/0.5 ML SYRINGE IVP PRN ×3 (08:35)
[2023-12-15] MEDS ORDERED: NALOXONE 0.4 MG/ML 1 ML VIAL IV PRN (08:35)
[2023-12-15] MEDS ORDERED: ONDANSETRON 4 MG/2 ML VIAL IVP PRN (08:35)
[2023-12-15] MEDS ORDERED: HYDROcodone/APAP 7.5-325MG 1 EACH TAB PO PRN ×2 (08:36)
[2023-12-15] MEDS: HYDROmorphone 0.5 MG/0.5 ML SYRINGE IVP PRN ×2 (08:39→09:18)
[2023-12-15] MEDS ORDERED: ROPIVACAINE 0.75% 1,100 MG, SODIUM CHLORIDE 0.9% 500 ML 403 ML, EMPTY PAIN BALL 1 EACH MISCELLANE PRN ×2 (08:54)
--- NOTE | 2023-12-15 09:17 | XR ---
EXAMINATION TYPE: XR knee limited LT DATE OF EXAM: 12/15/2023 8:56 AM CLINICAL INDICATION:Female, 68 years old with history of Evaluation for Postop abnormality and alignm ent; [facility] COMPARISON: None. TECHNIQUE: XR knee limited LT; examined in Frontal, lateral and oblique projections. FINDINGS: Status post total knee arthroplasty changes with hardware in appropriate alignment and in tact. No evidence of fracture. Subcutaneous lucencies and lucencies within the joint consistent with surgical changes. IMPRESSION: Status post total knee arthroplasty changes with hardware intact and appropriate alignment. No fractu res identified.
[2023-12-15] MEDS: LACTATED RINGERS 1,000 ML IV SCH ×2 (10:03→14:27)
[2023-12-15] MEDS ORDERED: droPERidol 5 MG/2 ML VIAL IVP ONE (13:16)
[2023-12-15] MEDS ORDERED: PANTOPRAZOLE 40 MG TABLET PO PRN (14:27)
[2023-12-15] MEDS ORDERED: LORATADINE 10 MG TAB PO PRN (14:27)
[2023-12-15] MEDS: SODIUM CHLORIDE 0.9% 1,000 ML IV SCH ×2 (14:50→23:56)
[2023-12-15] MEDS: PANTOPRAZOLE 40 MG/10 ML VIAL IVP SCH ×2 (15:40→20:27)
[2023-12-15] MEDS: ASPIRIN 81 MG PO SCH (20:27)
[2023-12-15] MEDS ORDERED: SENNOSIDES-DOCUSATE SODIUM 1 EACH TAB PO SCH (21:00)
--- NOTE | 2023-12-16 00:18 | CONS ---
CONSULTATION REASON FOR CONSULTATION: Advice regarding dizziness, weakness, other problems, requested by orthopedics. HISTORY OF PRESENT ILLNESS: This is a 68-year-old woman with a past history of GERD, DJD, being followed by Dr. Ray Shaikh in the outpatient setting, underwent left total knee arthroplasty. The patient is complaining of some dizziness, weakness, and nausea and also some wobbly left leg after surgery. There is no history of any fevers, rigors, or chills. No headache, loss of consciousness, seizures. The patient feels some pain according to family. PAST MEDICAL HISTORY: GERD, DJD, rest of the history and rest of the chart is also reviewed. HOME MEDICATIONS: Reviewed include p.r.n. omeprazole and senna, rest of medications and doses also reviewed. ALLERGIES: Levaquin. FAMILY HISTORY: History of lung cancer, brain tumor. SOCIAL HISTORY: Occasional alcohol. REVIEW OF SYSTEMS: A 14-point review of system negative as mentioned. PHYSICAL EXAMINATION: VITAL SIGNS: Pulse 73, blood pressure 141/83, respirations 16. HEENT: Conjunctivae normal. CARDIOVASCULAR: S1, S2 muffled. ABDOMEN: Soft, nontender. LEGS: Status post left knee arthroplasty. NERVOUS SYSTEM: No focal skin deficits, no ulcer rash bleeding. LABORATORY DATA: Not available. ASSESSMENT: 1. Dizziness, nausea, possible acute gastritis, status post surgery. 2. Status post left total knee arthroplasty/. 3. DJD next history of section recommendation. RECOMMENDATIONS AND DISCUSSION: This 68-year-old woman presented with surgery/ at this time, I recommend to continue current medications. I would recommend IV Protonix and dose pain management DVT prophylaxis we will follow the patient closely with you. Resume the home medications. Patient may be asked to follow up with primary physician after discharge. MMODL / IJN: [id number] /
[2023-12-16 02:06] VITALS: TEMP 98.4
--- NOTE | 2023-12-16 07:27 | P.PN ---
Progress Note - Text Progress Note Date: 12/16/23 Postoperative day # 1 status post total knee arthroplasty, and adductor canal catheter placed for postoperative analgesia, currently at ropivacaine 0.2% 8 mL per hour and continuous infusion, visual analogue scale is 4/10, patient using oral pain medication for breakthrough pain. Assessment and plan= Acute postoperative pain, adductor canal catheter for pain control, pain is well controlled we'll continue the same management.
[2023-12-16 08:04] VITALS: BP 155/82; PULSE 89; RESP 19
[2023-12-16] MEDS: ASPIRIN 81 MG PO SCH (08:27)
[2023-12-16] MEDS: PANTOPRAZOLE 40 MG/10 ML VIAL IVP SCH (08:30)
--- NOTE | 2023-12-16 09:07 | P.DS ---
Providers Expected date of discharge: 12/16/23 Attending physician: Jewel Bird Consults: 12/15/23 13:23 Consult Physician Routine Consulting Provider: Sylvia Villalta Consult Reason/Comments: medical management Do you want consulting provider notified?: Yes Primary care physician: Ray Shaikh - Discharge Diagnosis(es) (1) Osteoarthritis of left knee Current Visit: Yes Status: Acute (2) S/P total knee arthroplasty Current Visit: Yes Status: Acute Hospital Course: This is a 68-year-old female with known history of degenerative arthritis of the left knee. The patient presented for evaluation as an outpatient. After discussion and consideration patient elects to proceed with total knee arthroplasty. The patient is seen preoperatively by Dr. Bird and medically cleared for surgery by their primary care physician. Patient is admitted to [facility] on 12/15/2023 for total knee arthroplasty. The procedure is performed without complication or sequelae. The patient is doing well postoperatively. Labs and vital signs are stable on day of discharge. On day of discharge patient's knee incision is healing well. There is minimal erythema. There is no drainage noted at this time. There is minimal soft tissue swelling to the knee. Patient has full foot and ankle motion without difficulty or pain. Calf is soft and nontender to palpation. Neurovascular status to the left lower extremity is intact. Patient is discharged home in good condition. Please see med rec for accurate list of home medications. Plan - Discharge Summary Discharge Rx Participant: No New Discharge Prescriptions: New HYDROcodone/APAP 7.5-325MG [[place] 7.5-325] 1 - 2 tab PO Q6H PRN #32 tab PRN Reason: Pain Sennosides [Senokot] 2 tab PO DAILY PRN #60 tablet PRN Reason: Constipation Ondansetron Odt [Zofran Odt] 1 tab PO Q8HR PRN #10 tab PRN Reason: Nausea Aspirin [Adult Low Dose Aspirin EC] 81 mg PO BID 30 Days #60 tab No Action Fexofenadine HCl [Kristine Allergy] 60 mg PO DAILY PRN PRN Reason: ALLERGIES Omeprazole 20 mg PO DAILY PRN PRN Reason: reflux Multivit with Calcium,Iron,Min [Women's Multivitamin] 1 each PO DAILY Discharge Medication List Multivit with Calcium,Iron,Min [Women's Multivitamin] 1 each PO DAILY 04/12/21 [History] Omeprazole 20 mg PO DAILY PRN 04/12/21 [History] Fexofenadine HCl [Kristine Allergy] 60 mg PO DAILY PRN 11/19/23 [History] Aspirin [Adult Low Dose Aspirin EC] 81 mg PO BID 30 Days #60 tab 12/15/23 [Rx] HYDROcodone/APAP 7.5-325MG [[place] 7.5-325] 1 - 2 tab PO Q6H PRN #32 tab 12/15/23 [Rx] Ondansetron Odt [Zofran Odt] 1 tab PO Q8HR PRN #10 tab 12/15/23 [Rx] Sennosides [Senokot] 2 tab PO DAILY PRN #60 tablet 12/15/23 [Rx] Follow up Appointment(s)/Referral(s): [facility], [NON-STAFF] - 1-2 Days Jewel Bird DO [Doctor of Osteopathic Medicine] - 12/29/23 2:45 pm Patient Instructions/Handouts: *Surgery [facility] - On-Q Pain Pump Discharge Instructions, *Sur[facility] - (Anesthesia) Discharge Instructions Outpatient Surgery, How to Use an Incentive Spirometer (DC), Anterior Hip Replacement (DC) Activity/Diet/Wound Care/Special Instructions: Weightbearing as tolerated with a walker. CPM 5-6h daily as tolerated. Leave dressing intact. Dressing may be removed by home care nurse or by patient in 7 days. Then change dressing twice daily until follow up. May shower with initial dressing intact and after removal. If dressing become saturated, please remove. Recommend use of compression stockings daily until follow up to help prevent swelling and blood clots. May remove at night before sleeping. Please take aspirin 81mg twice daily for 30 days to prevent blood clots. Please follow up with [facility] and call with any questions or concerns, . Discharge Disposition: HOME WITH HOME HEALTH SERVICES
[2023-12-16 09:30] LABS: Basophils # (A) 0.02 X 10*3/uL (0.00-0.10); Basophils % (A) 0.2 %; Eosinophils # (A) 0.03 X 10*3/uL (0.04-0.35); Eosinophils % (A) 0.3 %; HCT 30.4 % (37.2-46.3); HGB 9.8 g/dL (12.0-15.0); Lymphocytes % (A) 13.9 %; MCH 29.9 pg (27.0-32.0); MCHC 32.2 g/dL (32.0-37.0); MCV 92.7 FL (80.0-97.0); Mean Platelet Volume 10.2 FL (9.5-12.2); Monocytes # (A) 0.87 X 10*3/uL (0.20-1.00); Monocytes % (A) 9.3 %; NRBC Per 100 WBC 0 X 10*3/uL (0.00-0.01); Neutrophils # (A) 7.08 X 10*3/uL (1.80-7.70); Platelet Count 233 X 10*3/uL (140-440); RBC 3.28 X 10*6/uL (4.10-5.20); RDW 14.2 % (11.5-14.5); WBC 9.33 X 10*3/uL (4.50-10.00)
--- NOTE | 2023-12-17 01:24 | PN ---
PROGRESS NOTE DATE OF SERVICE: 12/16/2023 SUBJECTIVE: This is a 68-year-old woman who was admitted with dizziness and some gastritis after the knee surgery, is improving significantly. No chest pain, no palpitations, no fever. OBJECTIVE: VITAL SIGNS: Pulse is 82, blood pressure 150/81, respirations 18. CHEST: Clear to auscultation. CARDIOVASCULAR: S1, S2. ABDOMEN: Soft. NERVOUS SYSTEM: Nonfocal. LABORATORY DATA: Hemoglobin 9.8. ASSESSMENT: 1. History of nausea, possible acute gastritis, status post surgery. 2. Status post left total knee arthroplasty. 3. DJD. 4. section history. RECOMMENDATIONS: Recommended to continue current management, continue symptomatic treatment, otherwise at this time I would recommend resume the home medications. Follow up with primary physician. DVT prophylaxis. Rest of the recommendations per Orthopedic surgery. Further recommendations to follow. MMODL / LIZETHN: [id number] /
== END 2023-12-16 12:51 | disposition home health service (06) ==
LOC: OR 05:32 → 4SSUR 08:36 → OR 12-16 12:51
PROVIDERS: ATTEND Orthopaedic Surgery
DX: M17.12 Unilateral primary osteoarthritis, left knee (principal); G89.18 Other acute postprocedural pain; K21.9 Gastro-esophageal reflux disease without esophagitis; Z88.1 Allergy status to other antibiotic agents; Z79.899 Other long term (current) drug therapy
CPT/HCPCS: 27447; 97530; 97161; 64999; 64448; 85025; 73560; C1713; C1776; C1751; J2250; J1100; J0690 ×2; J2405; J3010; C9113 ×2; J1170; J1790; J2795

== ENCOUNTER → 2025-01-07 | Outpatient (CLI) | payer MEDICARE ==
--- NOTE | 2025-01-11 12:31 | MM ---
Reason for Exam: Screening (asymptomatic). Last mammogram was performed 1 year(s) and 2 month(s) ago. Patient History: Menarche at age 10. First Full-Term at age 29. Late child-bearing (after 30). Postmenopausal. Maternal aunt had breast cancer. Risk Values: Sarahi 5 year model risk: 2.4%. NCI Lifetime model risk: 6.6%. Prior Study Comparison: 03/12/2022 Bilateral Screening Mammogram, [facility]. 10/24/2023 Bilateral MG 3D screening mammo w/cad, [facility]. Tissue Density: The breasts are almost entirely fatty. Findings: Analyzed By CAD. Right breast: There is no suspicious group of microcalcifications or new suspicious mass. Left breast: There is no suspicious group of microcalcifications or new suspicious mass. Overall Assessment: Negative, BI-RAD 1 Management: Screening Mammogram of both breasts in [address] [facility] will attempt to contact patient to return for supplemental views and ultrasound if indicated. Patient should continue monthly self-breast exams. A clinical breast exam by your physician is recommended on an annual basis. This exam should not preclude additional follow-up of suspicious palpable abnormalities. Note on Sarahi scores and lifetime risk: 1. A Sarahi score greater than 3% is considered moderate risk. If this is the case, consider specialist referral to assess eligibility for a risk reducing agent. 2. If overall lifetime risk for the development of breast cancer is 20% or higher, the patient may qualify for future screening with alternating mammogram and breast MRI. [facility], , 01/07/2025 8:37 AM. Electronically signed and approved by: Gerardo Coleman DO
== END | disposition home or self-care (01) ==
LOC: RADMAMWWP 08:27
PROVIDERS: ATTEND Family Medicine
DX: Z12.31 Encounter for screening mammogram for malignant neoplasm of breast (principal); R92.313 Mammographic fatty tissue density, bilateral breasts; Z78.0 Asymptomatic menopausal state; Z80.3 Family history of malignant neoplasm of breast
CPT/HCPCS: 77063; 77067